=== PATIENT | male | born 1955 | race American Indian/Alaskan Native ===

== ENCOUNTER 2018-11-09 13:19 | Outpatient (CLI) | payer MEDICAID, MEDICARE ==
--- NOTE | 2018-11-09 23:15 | Magnetic Resonance Report ---
PROCEDURE: MR LUMBAR SPINE WO CON TECHNIQUE: Magnetic resonance imaging of the lumbar spine was performed using standard pulse sequenc es without contrast material. HISTORY: LOW BACK PAIN, SPONDYLOSIS, LUMBAR REGION COMPARISONS: None . FINDINGS: No fractures or subluxation visualized. There is an oval density projecting in the upper half of the L4 vertebral body measuring 2.2 x 1.5 cm. This has decreased T1 signal and isodense to mildly increas ed T2 signal. I cannot exclude metastatic disease. Small Schmorl's nodes are seen involving the super ior endplate L3 inferior endplate L2. The conus appears normal. No mass is visualized. The cord appropriately terminates at the L1 level.. T12-L1: No significant abnormality. L1-2: Minimal diffuse posterior disc bulge present without focal disc herniation or spinal stenosis. . L2-3: Minimal diffuse posterior disc bulge is present without focal disc herniation or spinal stenos is.. L3-4: Minimal diffuse disc bulge is present without focal disc herniation or spinal stenosis. Mild t o moderate facet arthritis present bilaterally.. L4-5: Mild diffuse disc bulge present without focal disc herniation or spinal stenosis. Mild to mode rate facet arthritis visualized bilaterally. The neural foramen is mildly narrowed secondary to ligam entum flavum laxity which appears to be resting on the exiting right L4 nerve root. L5-S1: There is a asymmetric diffuse disc bulge at the L5-S1 level greater to the right than the lef t. T2 hyperintensity seen in the posterior annulus consistent with a tear in the annulus. This appear s to be resting on the anterior aspect of the right S1 nerve root. Moderate facet arthritis visualize d bilaterally. The neural foramen appear adequate bilaterally.. Other: Numerous renal cortical cysts. The visualized bilaterally.. IMPRESSION: Diffuse disc bulge is present at L1-2 through the L4-5 level. Asymmetric disc bulge L5-S1 level projecting more to the right than the left. A tear in the posterior annulus is present on the right. The protruding disc is resting on and possibly minimally displacing the right S1 nerve root.. Neural foramen on the right at the L4-5 level is narrowed secondary to ligamentum flavum laxity. The ligamentum flavum appears to be resting on the exiting right L4 nerve root. Abnormal decreased T1 signal and increased T2 signal L4 vertebral body superiorly as described. I can not exclude metastatic disease. Diffuse cystic changes seen in both kidneys. I cannot exclude polycystic kidney disease. This document is electronically signed by Jeffrey Carlos MD., November 09 2018 11:14:02 PM ET
== END 2018-11-09 13:20 | disposition home or self-care (01) ==
LOC: MRI 13:19
PROVIDERS: ATTEND Physical Medicine & Rehabilitation
DX: M51.26 Other intervertebral disc displacement, lumbar region (principal); M43.06 Spondylolysis, lumbar region; T14.8XXA Other injury of unspecified body region, initial encounter; X58.XXXA Exposure to other specified factors, initial encounter; Y93.89 Activity, other specified; Y92.89 Other specified places as the place of occurrence of the external cause; Y99.8 Other external cause status
CPT/HCPCS: 72148